=== PATIENT | male | born 2000 | race Caucasian/White ===

== ENCOUNTER 2024-02-23 10:01 | Outpatient (CLI) | payer OTHER, SELFPAY | END 2024-02-23 10:02 | disposition home or self-care (01) | PROVIDERS: Visit Provider Family Medicine | DX: R00.2 Palpitations (principal) | CPT/HCPCS: 80053; 84443 ==

== ENCOUNTER 2024-07-25 09:27 | Outpatient (CLI) | payer OTHER, SELFPAY | END 2024-07-25 09:28 | disposition home or self-care (01) | PROVIDERS: PCP Family Medicine; Visit Provider Emergency Medicine Emergency Medical Services | DX: R10.9 Unspecified abdominal pain (principal); F10.129 Alcohol abuse with intoxication, unspecified | CPT/HCPCS: A0425; A0429 ==

== ENCOUNTER 2024-07-25 10:04 | Emergency (ER) | payer OTHER, SELFPAY ==
[2024-07-25 10:18] VITALS: BP 109/69; PULSE 99; RESP 16; TEMP 36.2; O2SAT 99
--- NOTE | 2024-07-25 10:19 | ED_ITS ---
HPI - General Adult General Date Seen: 07/25/24 Chief complaint: Alcohol/Intoxication Stated complaint: ETOH Time Seen by Provider: 07/25/24 10:18 Source: patient and other History of Present Illness HPI narrative: Patient is a 23-year-old male brought in initially by EMS. His girlfriend called 911 as he was vomiting. He and his girlfriend tell me that they had had a conversation last night about breaking up, he says he started drinking at around 4:00 a.m., had for 5 drinks, she went for walk this morning and when she came back she says that he was vomiting and said he felt like he was going to . He denies other substances. He says he drinks on the weekends. I spoke with her privately, she denies any concerns about her safety or his. He denies any suicidal or homicidal thoughts. He takes fluoxetine for depression and a nxiety. He was seen in the triage room, says he is feeling better and does not want any specific treatment. His girlfriend says she is willing to take him home and keep an eye on him today. Related Data Previous Rx's ?Medication ?Instructions ?Recorded fluoxetine 20 mg capsule 20 mg PO QDAY #30 caps 05/18/24 Allergies Allergy/AdvReac Type Severity Reaction Status Date / Time No Known Drug Allergies Allergy Verified 02/23/24 09:13 Exam Narrative: Exam Narrative: Vital signs reviewed In general, alert, nontoxic young man. He is mildly intoxicated, but speech is fluent, gait stable. Head: Normocephalic, atraumatic. Eyes: Sclera clear. Pupils equal and reactive. ENT: Mucous membranes moist. Neck: Supple without adenopathy. Heart: Regular rate and rhythm without murmur. Lungs: Clear. No increased work of breathing, crackles or wheezes. Abdomen: Soft, nontender to palpation. Extremities: Well perfused, pulses intact. No significant edema. Neurologic: Alert, conversant. Speech fluent, face symmetric. Moves all extremities equally. Skin: Warm, dry well perfused. Affect: Normal. Course Course ED Course: Given that his girlfriend feels comfortable taking him home and he does not 1 specific treatment, I think it is reasonable to let him go. Reviewed reasons to return, I am giving him some Zofran and would recommend sticking with clears for now. If he has uncontrolled vomiting, significant abdominal pain, vomiting of blood or blood in the stool, high fevers or other significant worsening, return to the ER at any time. Discharge Plan Discharge Clinical Impression: Alcohol intoxication, Vomiting Patient Disposition: Home w/ Parent or Adult Condition: Improved Instructions: Acute Nausea and Vomiting (DC) Additional Instructions: You can use Zofran if needed for nausea or vomiting. Stick with clear liquids for now, you can advance your diet later today if you are feeling better. If you have uncontrolled vomiting, return of significant abdominal pain, fevers, bloody stools or other significant changes, return for re-evaluation. Prescriptions: No Action fluoxetine 20 mg capsule 20 mg PO QDAY Qty: 30 0RF Follow Up/Referrals: Rafy Carter MD [Primary Care Provider] - Stand Alone Forms: [employer] Info Instructions
== END 2024-07-25 11:19 | disposition home or self-care (01) ==
LOC: ED 11:18
PROVIDERS: Emergency Provider Emergency Medicine; PCP Family Medicine
DX: R11.10 Vomiting, unspecified (principal); F10.129 Alcohol abuse with intoxication, unspecified
CPT/HCPCS: 99283; 99284

== ENCOUNTER 2024-10-19 16:24 | Emergency (ER) | payer BC, SELFPAY ==
--- OUTSIDE RECORDS SUMMARY | 2024-10-19 16:27 | XMS_ITS | Clinical Summary ---
Author Organization [facility] Address [address] [place] [id number] Care Team Providers Care Electronic Parts Designer Name Role Phone None Primary Care Provider Unavailabl e Allergies No known active allergies Medications FLUoxetine (PROZAC) 20 mg capsule Take 20 mg by mouth once daily. 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 Immunizations Immunization Administration Dates Next Due DTaP 04/08/2005, 3,02/24/2002,12/15,2000 DTaP-HIB (TriHIBIT) 2000 HIB-HepB (Comvax) 11/04/2001,2000 Hepatitis A (Peds) 09/15/2014, 3,06/03/2013,11/19 Hepatitis B (Peds) 2000 Hepatitis B, Unspecified 2000 Hib Conjugate, Unspecified 2000 Human Papilloma Virus Vaccine 09/15/2014, 013,11/19/2012 Inactivated Polio Vaccine 04/08/2005,07/2001,2000,09/28 Influenza A (H1N1), Inactivated 06/18/2009 Influenza A (H1N1), Live Intranasal 06/18/2009 Influenza Virus, Unspecified 08/13/2012 Influenza, IIV3 (Age >=3 years) 08/13/2012 MENINGOCOCCAL VACCINE 2 VIAL 2MO-55YO (MENVEO) 02/27/2017,09/15/2014 MMR 04/08/2005,11/04/2001 Meningococcal Vaccine (Menactra) 06/03/2013 Pneumococcal conj 7-Valent (Prevnar 7) 3,2000,2000 Pneumococcal, Unspecified 07/28/2002,2000, 2000 Polio Virus, Unspecified 04/08/2005 Tdap 11/19/2012 Varicella Vaccine 09/15/2014,06/03/2013,11/05/19 Family History Medical History Relation Name Comments Alcoholism Father Psychiatric illness Father depressi on Diabetes Maternal Grandfather Hyperlipidemia Maternal Grandmother Seizures Maternal Uncle Good Health Mother Diabetes Paternal Grandfather Hyperlipidemia Paternal Grandfather Diabetes Paternal Grandmother Asthma No Family History Cancer-colon No Family History Heart Disease No Family History Relation Name Status Comments Father Maternal Grandfather Maternal Grandmother Maternal Uncle Mother Paternal Grandfather Paternal Grandmother Social History Tobacco Use Types Packs/Day Years Used Date Smoking Tobacco: Former Cigarettes S tarted: 2017 Passive Smoke Exposure: Past Smokeless Tobacco: Never Alcohol Use Standard Drinks/Week Comments Yes 0 (1 standard drink = 0.6 oz pur e alcohol) occasionally PHQ-2 Answer Date Recorded PHQ-2 TOTAL SCORE 2 08/05/2023 Social Connections Answer Date Recorded Frequency of Communication with Friends and Fami ly Not on file 08/05/2023 Interpersonal Safety Answer Date Record ed Are you being hit, kicked, p ushed or yelled at (see row info)? No 07/28/2023 Interpersonal Safety Abuse 12 - 18 Not on file 07/28/2023 Interpersonal Safety Ambulatory Vulnerability No t on file 07/28/2023 Sex and Gender Information Value Date Recorded Sex Assigned at Not on file Legal Sex Male 11:32 AM CDT Gender Identity Not on file Sexual Orientation Not on file Obstetrics History Last Filed Vital Signs Vital Sign Reading Time Taken Comments Blood Pressure 112/78 08/05/2023 10:15 AM DATA ENTRY Pulse 56 08/05/2023 10:15 AM DATA ENTRY Temperature 37.1 C (98.7 F) 07/28/2023 6:25 PM DATA ENTRY Respiratory Rate 16 07/28/2023 6:25 PM DATA ENTRY Oxygen Saturation 96% 07/28/2023 7:25 PM DATA ENTRY Inhaled Oxygen Concentration - - Weight 65.5 kg (144 lb 4.8 oz) 08/05/2023 10:15 AM DATA ENTRY Height 167 cm (5' 5.75) 08/05/2023 10:15 AM DATA ENTRY Body Mass Index 23.47 08/05/2023 10:15 AM DATA ENTRY Plan of Treatment Health Maintenance Due Date Last Done Comments HIV for age 15-65 2015 Hepatitis C screening for age 18-79 2018 Tetanus booster 11/19/2022 11/19/2012 COVID-19 vaccine series ( season) 2024 07/23/2021, 06/26/2021 Influenza Vaccine (#1) 2024 08/13/2012, 2012 BMI (ht and wt on same day) for age 18+ 08/05/2024 08/05/2023 Depression screening for age 12+ 08/05/2024 08/05/2023, 02/27/2017 Pneumococcal series for age 6-49 Aged Out 07/28/2002, 07/28/2002, 2000, Additional history exists No longer eligible based on patient's age to complete this topic Tdap Completed 11/19/2012 HPV series for age 9-26 Completed 09/15/19 15, 06/03/2013, 11/19/2012 Insurance * Guarantor: Jah Cunha Account Type Relation to Patient Date of Phone Billing Address Personal/Family Self 2000 [phone] [place] [address] [place] [place] [id number] [place] [id number] Care Teams Electronic Parts Designer Relationship Specialty Start Date End Date None . PCP - General 07/28/23
[2024-10-19 16:47] VITALS: BP 128/80; PULSE 81; RESP 18; TEMP 36.9; O2SAT 98; BMI 22.6
--- NOTE | 2024-10-19 17:32 | ED.NAVMDI ---
HPI - Nausea/Vomiting/Diarrhea General Time Seen by Provider: 17:33 Date Seen: 10/19/24 Chief complaint: Diarrhea Stated complaint: Thin stool, weakness, lightheaded Time Seen by Provider: 10/19/24 17:32 Source: patient and RN notes reviewed Mode of arrival: ambulatory Limitations: no limitations History of Present Illness HPI Narrative: Part a is a 24-year-old male with history anxiety and depression who comes to the emergency room for evaluation of weight loss abdominal pain and thin stools. Patient notes that he has had persistently thinner stools the last 3-4 months associated with weight loss. He also notes abdominal discomfort and pressure in his left upper quadrant. He has also noticed occasional blood in his stool. No diarrhea. No fevers or chills. Occasionally states that he has shortness of breath with occasional chest pain. Related Data Previous Rx's ?Medication ?Instructions ?Recorded fluoxetine 20 mg capsule 20 - 40 mg (1 - 2 x 20 mg) PO QDAY 10/05/24 #60 caps Allergies Allergy/AdvReac Type Severity Reaction Status Date / Time No Known Drug Allergies Allergy Verified 10/19/24 19:25 Review of Systems Status of ROS: Reports: 10 or more systems reviewed and unremarkable except as noted in History and below PFSH PFSH Social History What is your current living situation?: I presently have a place to live Problems where you live: no known problems In the past 12 months, utilities in danger of being shut off: no In past 12 months, lack of transportation kept you from medical appts, meetings, work, or getting things needed for daily living: yes In the past 12 mos, have been you worried that your food would run out before you had money to buy more?: declined to answer In the past 12 mos, the food you bought just didn't last and you didn't have money to buy more?: never true Smoking Status: Never smoker How often do you have a drink containing alcohol: never AUDIT-C Alcohol total score: 0 Non-prescribed substance use: denies use How often does anyone, including family, friends and others, physically hurt you: rarely How often does anyone, including family, friends and others, insult or talk down to you: sometimes How often does anyone, including family, friends and others, threaten you with harm: never How often does anyone, including family, friends and others, scream or curse at you: sometimes service: No Health Related Social Needs: transportation insecurity (Z59.82) and Other personal risk factors, not elsewhere classified (Z91.89) Exam Narrative: Exam Narrative: Alert and oriented. Thin. Not cachectic and he in appearance. EOM is full. Heart with regular rate and rhythm and lungs are clear. Abdomen shows some mild tenderness in the left upper quadrant. No rebound tenderness. Moving all extremities. Const: Vital Signs, click to edit/add: Vital Signs - 24 hr 10/19/24 16:47 10/19/24 20:18 Temperature 98.5 F Pulse Rate [Right Pulse Oximeter] 81 71 Respiratory Rate 18 16 Blood Pressure [Ri ght Upper Arm] 128/80 126/91 H Pulse Oximetry 98 98 Oxygen Delivery Me thod Room Air Room Air Documenting provider has reviewed patient's vital signs: yes Course Course ED Course: Differential diagnosis includes but is not limited to ulcerative colitis, Crohn's disease, bowel cancer, stricture. Will place IV and check CBC, comprehensive panel, CRP, lactate. Plan on abdominal CT with contrast given patient's symptoms weight loss. Reevaluation(s) Reevaluation #1: Patient noted to have reassuring labs with normal hemoglobin white count as well as CRP. Lactate slightly elevated. Urinalysis let evidence of UTI. Abdominal CT does show inflammatory changes of the ascending and descending colon./mild colitis. Consultations Consultation #1: I had the pleasure of speaking with surgical orderly regarding this patient. She was able to view the films as well. She does agree that we should continue to try and get colonoscopy. Vital Signs Vital signs: Initial Vital Signs Temperature 98.5 F 10/19/24 16:47 Temperature Source Temporal Artery Scan 10/19/24 16:47 Pulse Rate 81 10/19/24 16:47 Pulse Rhythm Regular 10/19/24 16:47 Pulse Strength 3+ Normal 10/19/24 16:47 Respiratory Rate 18 10/19/24 16:47 Blood Pressure 128/80 10/19/24 16:47 Blood Pressure Mean 96 10/19/24 16:47 Blood Pressure Position Sitting 10/19/24 16:47 Pulse Oximetry 98 10/19/24 16:47 Oxygen Delivery Method Room Air 10/19/24 16:47 Vital Signs Temperature 98.5 F 10/19/24 16:47 Pulse Rate 81 10/19/24 16:47 Respiratory Rate 18 10/19/24 16:47 Blood Pressure 128/80 10/19/24 16:47 Pulse Oximetry 98 10/19/24 16:47 Oxygen Delivery Method Room Air 10/19/24 16:47 Temperature 98.5 F 10/19/24 16:47 Pulse Rate 71 10/19/24 20:18 Respiratory Rate 16 10/19/24 20:18 Blood Pressure 126/91 H 10/19/24 20:18 Pulse Oximetry 98 10/19/24 20:18 Oxygen Delivery Method Room Air 10/19/24 20:18 Medications Administered Medications: Discontinued Medications Generic Name Dose Route Start Last Admin Trade Name Freq PRN Reason Stop Dose Admin Sodium Chloride 1,000 mls @ 1,000 mls/hr 10/19/24 17:45 10/19/24 19:00 0.9 % Sodium Chloride 1000 Ml IV 10/19/24 18:44 Infused .Q1H ILEANA Infusion MDM - Nausea/Vomiting/Diarrhea MDM Narrative Medical decision making narrative: 1. Mild colitis-patient notes that he is feeling much better after fluids. We will discharge him home at this time. I did have this pleasure of speaking to our surgical orderly Dr. Ortiz. At this time advises against antibiotics but does want to or colonoscopy. Head plan on referring patient to his primary doctor Emma for a colonoscopy referral but unfortunately primary physician is not going to be back in the office for another 10 days or so. For I have ordered the diagnostic colonoscopy for this patient. 2. Blood in stool-no diarrhea during his time here. No production of bloody stools here. Hemoglobin stable with no tachycardia. 3. Disposition-home at this time. Return/seek medical attention for worsening symptoms. Otherwise await phone call for scheduling of colonoscopy. Medical Records Attestation: I reviewed the patient's medical records. Lab Data Attestation: I reviewed the patient's lab results. Labs: Lab Results 10/19/24 10/19/24 Range/Units 18:05 18:09 WBC 5.34 (4.50-11.00) K/uL RBC 4.94 (4.30-5.90) m/uL Hgb 15.5 (13.5-17.5) gm/dL Hct 44.1 (37.0-53.0) % MCV 89 (80-100) fL MCH 31 (26-34) pg MCHC 35 (32-36) gm/dL RDW Coeff of Bg 11.3 L (11.5-15.5) % Plt Count 248 (140-440) K/uL Neut % (Auto) 54.0 (42.0-72.0) % Lymph % (Auto) 35.8 (20-44) % [place] % (Auto) 7.9 (0.0-11.0) % Eos % (Auto) 2.1 (0.0-7.0) % Baso % (Auto) 0.2 (0.0-3.0) % Neut # (Auto) 2.89 (1.7-7.0) K/uL Lymph # (Auto) 1.91 (0.90-2.90) K/uL [place] # (Auto) 0.40 (0.00-0.90) K/UL Eos # (Auto) 0.11 (0.00-0.50) K/uL Baso # (Auto) 0.01 (0.00-0.30) K/uL Abs Immat Gran (auto) 0.00 (0.00-0.30) K/uL Imm/Tot Granulo (auto) 0.0 % Sodium 138 (135-149) mmol/L Potassium 4.1 (3.6-5.1) mmol/L Chloride 102 (96-114) mmol/L Carbon Dioxide 28 (20-32) mmol/L Anion Gap 8 (7-15) mEq/L BUN 5 (5-24) mg/dL Creatinine 0.8 (0.5-1.5) mg/dL Estimated Creat Clear 127.89 Estimated GFR 127 ml/min Glucose 140 H (60-115) mg/dL Lactate 2.3 H (0.5-1.9) mmol/L Calcium 9.6 (8.4-10.6) mg/dL Total Bilirubin 1.1 (0.1-1.5) mg/dL AST 71 H (12-35) U/L ALT 25 (4-50) U/L Alkaline Phosphatase 100 (40-150) U/L C-Reactive Protein < 0.5 L (0.5-1.0) mg/dL Total Protein 7.7 (6.0-8.3) g/dL Albumin 4.8 (3.3-5.0) g/dL Urine Color Yellow (Yellow) Urine Appearance Clear (Clear) Urine pH 6.0 (5.0-8.5) Ur Specific [place] <= 1.005 (1.000-1.030) Urine Protein Negative (Negative) Urine Glucose (UA) Negative (Negative) Urine Ketones Negative (Negative) Urine Blood Trace-intact A (Negative) Urine Nitrite Negative (Negative) Urine Bilirubin Negative (Negative) Urine Urobilinogen 0.2 (0.2-1.0) Ur Leukocyte Esterase Negative (Negative) Urine RBC 0-2 (0-2) Urine WBC 0-2 (0-5) Ur Squamous Epith Cells None (None-Few) Urine Bacteria None (None) Imaging Data CT scan - abdomen: Attestation: I have reviewed the pertinent imaging results. My impression: No evidence of bowel obstruction Radiologist's impression: Lower chest: Unremarkable. Liver: Unremarkable. Gallbladder and bile ducts: Unremarkable. Pancreas: Unremarkable. Spleen: Unremarkable. Adrenal glands: Unremarkable. Kidneys: Unremarkable. GI tract: Mild wall thickening of segments of ascending and descending colon. No bowel obstruction. No CT evidence of acute appendicitis. Vasculature: Abdominal aorta is normal in caliber. Grossly patent vasculature. Lymph nodes: No suspicious lymphadenopathy. Peritoneum/Abdominal Wall: No ascites or pneumoperitoneum. No acute abdominal wall abnormality. Pelvis: Mild bladder wall thickening. Bones: No acute abnormality. IMPRESSION: 1. Mild wall thickening of segments of ascending and descending colon may represent mild infectious/inflammatory colitis. 2. Mild bladder wall thickening. Correlate for cystitis. Discharge Plan Discharge Clinical Impression: Abdominal pain Patient Disposition: Home, Self-Care Condition: Improved Additional Instructions: Recommend follow-up with your primary MD. they should schedule you for colonoscopy and order the medications to prep you for that. Try to stay as hydrated as possible. Return to the ER for worsening symptoms. Prescriptions: No Action fluoxetine 20 mg capsule 20 - 40 mg PO QDAY Qty: 60 0RF Rx Instructions: Start 20mg daily, increase to 40mg daily after 1-2 wks Follow Up/Referrals: Rafy Carter MD [Primary Care Provider] - Stand Alone Forms: [employer] Info Instructions
--- OUTSIDE RECORDS SUMMARY | 2024-10-19 17:54 | XMS_ITS | Clinical Summary ---
Author Organization [employer] [facility] Address [address] [place] [address] Care Team Providers Care Children'S Literature Professor Name Role Phone None Primary Care Provider [...] Comments Blood Pressure 112/78 08/05/2023 10:15 AM TRAINING AND DEVELOPMENT REP Pulse 56 08/05/2023 10:15 AM TRAINING AND DEVELOPMENT REP Temperature 37.1 C (98.7 F) 07/28/2023 6:25 PM TRAINING AND DEVELOPMENT REP Respiratory Rate 16 07/28/2023 6:25 PM TRAINING AND DEVELOPMENT REP Oxygen Saturation 96% 07/28/2023 7:25 PM TRAINING AND DEVELOPMENT REP Inhaled Oxygen Concentration - - Weight 65.5 kg (144 lb 4.8 oz) 08/05/2023 10:15 AM TRAINING AND DEVELOPMENT REP Height 167 cm (5' 5.75) 08/05/2023 10:15 AM TRAINING AND DEVELOPMENT REP Body Mass Index 23.47 08/05/2023 10:15 AM TRAINING AND DEVELOPMENT REP Plan of Treatment Health Maintenance Due Date [...] [id number] [place] [address] [place] [id number] [place] [id number] Care Teams Children'S Literature Professor Relationship Specialty Start Date End Date None . PCP - General 07/28/23
[2024-10-19] MEDS: 0.9 % SODIUM CHLORIDE 1000 ml 1,000 ML IV (18:06)
[2024-10-19 18:07] LABS: Lactate* 2.3 mmol/L (0.5-1.9)
[2024-10-19 18:10] LABS: Basophils Absolute Auto 0.01 K/uL (0.00-0.30); Basophils Percent Auto 0.2 % (0.0-3.0); Eosinophils Absolute Auto 0.11 K/uL (0.00-0.50); Eosinophils Percent Auto 2.1 % (0.0-7.0); Hematocrit 44.1 % (37.0-53.0); Hemoglobin* 15.5 gm/dL (13.5-17.5); Lymphocytes Absolute Auto 1.91 K/uL (0.90-2.90); Lymphocytes Percent Auto 35.8 % (20-44); Mean Corpuscular HGB Conc 35 gm/dL (32-36); Mean Corpuscular Hemoglobin 31 pg (26-34); Mean Corpuscular Volume 89 fL (80-100); Monocytes Percent Auto 7.9 % (0.0-11.0); Neutrophils Absolute Auto 2.89 K/uL (1.7-7.0); Platelet Count* 248 K/uL (140-440); RDW Coefficient of Variation % 11.3 % (11.5-15.5); Red Blood Count 4.94 m/uL (4.30-5.90); Slide Review Reflex No; White Blood Count* 5.34 K/uL (4.50-11.00)
[2024-10-19 18:13] LABS: Appearance Urine Clear (Clear); Bilirubin Urine Negative (Negative); Blood Urine Trace-intact (Negative); Color Urine Yellow (Yellow); Glucose Urine Negative (Negative); Ketones Urine Negative (Negative); Leukocyte Esterase Urine Negative (Negative); Nitrite Urine Negative (Negative); Protein Urine Negative (Negative); Specific Gravity Urine <= 1.005 (1.000-1.030); Urobilinogen Urine 0.2 (0.2-1.0)
[2024-10-19 18:14] LABS: RBC Urine 0-2 (0-2); WBC Urine 0-2 (0-5)
[2024-10-19 18:25] LABS: Albumin* 4.8 g/dL (3.3-5.0); Chloride* 102 mmol/L (96-114); Potassium* 4.1 mmol/L (3.6-5.1); Sodium* 138 mmol/L (135-149)
[2024-10-19 18:28] LABS: Alanine Aminotransferase* 25 U/L (4-50); Alkaline Phosphatase* 100 U/L (40-150); Anion Gap 8 mEq/L (7-15); Aspartate Amino Transferase* 71 U/L (12-35); Bilirubin Total* 1.1 mg/dL (0.1-1.5); Blood Urea Nitrogen* 5 mg/dL (5-24); Carbon Dioxide* 28 mmol/L (20-32); Creatinine* 0.8 mg/dL (0.5-1.5); Est. Creatinine Clearance* 127.89; Estimated Glomerular Filt Rate 127 ml/min
[2024-10-19 18:29] LABS: Calcium* 9.6 mg/dL (8.4-10.6); Glucose* 140 mg/dL (60-115); Total Protein* 7.7 g/dL (6.0-8.3)
[2024-10-19 18:38] LABS: C Reactive Protein* < 0.5 mg/dL (0.5-1.0)
--- NOTE | 2024-10-19 18:48 | CRLHL7_ITS ---
For Patients: As a result of the Century Cures Act, medical imaging exams and procedure reports are released immediately into your electronic medical record. You may view this report before your referring provider. If you have questions, please contact your health care provider. INDICATION: Abdominal pain and unintentional weight loss. TECHNIQUE: CT abdomen and pelvis acquired with 69 cc Omnipaque 370 IV contrast. COMPARISON: None. FINDINGS: Lower chest: Unremarkable. Liver: Unremarkable. Gallbladder and bile ducts: Unremarkable. Pancreas: Unremarkable. Spleen: Unremarkable. Adrenal glands: Unremarkable. Kidneys: Unremarkable. GI tract: Mild wall thickening of segments of ascending and descending colon. No bowel obstruction. No CT evidence of acute appendicitis. Vasculature: Abdominal aorta is normal in caliber. Grossly patent vasculature. Lymph nodes: No suspicious lymphadenopathy. Peritoneum/Abdominal Wall: No ascites or pneumoperitoneum. No acute abdominal wall abnormality. Pelvis: Mild bladder wall thickening. Bones: No acute abnormality. IMPRESSION: 1. Mild wall thickening of segments of ascending and descending colon may represent mild infectious/inflammatory colitis. 2. Mild bladder wall thickening. Correlate for cystitis. Please note that all CT scans at this facility use dose modulation, iterative reconstruction, and/or weight-based dosing when appropriate to reduce radiation dose to as low as reasonably achievable. Dictated by Storm Warren MD @ 10/19/2024 7:59:34 PM (Electronically Signed)
[2024-10-19 20:18] VITALS: BP 126/91; PULSE 71; RESP 16; O2SAT 98
== END 2024-10-19 20:36 | disposition home or self-care (01) ==
PROVIDERS: Emergency Provider Family Medicine; PCP Family Medicine
DX: K52.9 Noninfective gastroenteritis and colitis, unspecified (principal)
CPT/HCPCS: 36415; 74177; 80053; 81001; 83605; 85025; 86140; 99284; J7030; Q9967

== ENCOUNTER 2025-02-14 09:01 | Outpatient (CLI) | payer BC, SELFPAY ==
--- NOTE | 2025-02-14 10:27 | P.ANES_ITS ---
Anesthesia Charges Start Date/Time Anesthesia Start Date: 02/14/25 Anesthesia Start Time: 09:50 Stop Date/Time Anesthesia Stop Date: 02/14/25 Anesthesia Stop Time: 10:27 Coding CPT Codes CPT Codes: NICHOLE LWR INTST SCR COLSC - 44500 ([id number]) P1 - NORMAL HEALTHY PATIENT, QX - ADVANCED PRACTICE NURSE SVRohit W/ MED DIRECTION, QK - STONE LAYER 2-4 CNCRNT ANENaveed PROC
--- NOTE | 2025-02-14 10:27 | W.ANESCHARGE ---
Anesthesia Charges Start Date/Time Anesthesia Start Date: 02/14/25 Anesthesia Start Time: 09:50 Stop Date/Time Anesthesia Stop Date: 02/14/25 Anesthesia Stop Time: 10:27 Coding CPT Codes CPT Codes: NICHOLE LWR INTST SCR COLSC - 28821 ([id number]) P1 - NORMAL HEALTHY PATIENT, QX - OPERATOR VACUUM SVRohit W/ MED DIRECTION, QK - METAL CUTTER 2-4 CNCRNT ANENaveed PROC
--- NOTE | 2025-02-14 10:56 | P.ANES_ITS ---
Anesthesia Charges Start Date/Time Anesthesia Start Date: 02/14/25 Anesthesia Start Time: 09:50 Stop Date/Time Anesthesia Stop Date: 02/14/25 Anesthesia Stop Time: 10:27 Coding CPT Codes CPT Codes: NICHOLE LWR INTST SCR COLSC - 24753 ([id number]) P1 - NORMAL HEALTHY PATIENT, QK - PREPLEATER 2-4 CNCRNT ANES PROC, QX - SPIRAL RUNNER SVC W/ MED DIRECTION
--- NOTE | 2025-02-14 10:56 | W.ANESCHARGE ---
Anesthesia Charges Start Date/Time Anesthesia Start Date: 02/14/25 Anesthesia Start Time: 09:50 Stop Date/Time Anesthesia Stop Date: 02/14/25 Anesthesia Stop Time: 10:27 Coding CPT Codes CPT Codes: NICHOLE LWR INTST SCR COLSC - 72866 ([id number]) P1 - NORMAL HEALTHY PATIENT, QK - RAG WILLOW OPERATOR 2-4 CNCRNT ANES PROC, QX - ENDBAND CUTTER HAND SVC W/ MED DIRECTION
== END 2025-02-14 09:02 | disposition home or self-care (01) ==
LOC: OP CLINIC 09:03
PROVIDERS: PCP Family Medicine; Visit Provider Surgery
DX: K92.1 Melena (principal); R19.4 Change in bowel habit; K64.8 Other hemorrhoids
CPT/HCPCS: 00811; 00812; 45380; 88305; J2704